=== PATIENT | male | born 1950 | race Caucasian/White ===

== ENCOUNTER → 2019-06-21 07:42 | Outpatient (BNVA) | payer MEDICARE, OTHER, SELFPAY | PROVIDERS: Family Provider Internal Medicine; PCP Internal Medicine; Visit Provider Nurse Practitioner | DX: F33.41 Major depressive disorder, recurrent, in partial remission (principal); F51.11 Primary hypersomnia; F41.1 Generalized anxiety disorder | CPT/HCPCS: 99213 ==

== ENCOUNTER → 2019-07-13 14:09 | Outpatient (BNVA) | payer MEDICARE, OTHER, SELFPAY | PROVIDERS: Family Provider Internal Medicine; PCP Internal Medicine; Visit Provider Urology | DX: R33.9 Retention of urine, unspecified (principal); R97.20 Elevated prostate specific antigen [PSA]; N52.9 Male erectile dysfunction, unspecified | CPT/HCPCS: 81001; 84153 ==

== ENCOUNTER → 2019-12-13 07:39 | Outpatient (BNVA) | payer MEDICARE, OTHER, SELFPAY | PROVIDERS: Family Provider Internal Medicine; PCP Internal Medicine; Visit Provider Nurse Practitioner | DX: F41.1 Generalized anxiety disorder (principal); F33.41 Major depressive disorder, recurrent, in partial remission; G47.00 Insomnia, unspecified; F43.12 Post-traumatic stress disorder, chronic | CPT/HCPCS: 99213 ==

== ENCOUNTER → 2020-01-12 08:46 | Outpatient (BNVA) | payer MEDICARE, OTHER, SELFPAY | PROVIDERS: Family Provider Internal Medicine; PCP Internal Medicine; Visit Provider Urology | DX: N52.9 Male erectile dysfunction, unspecified (principal); R97.20 Elevated prostate specific antigen [PSA] | CPT/HCPCS: 81001 ==

== ENCOUNTER → 2020-07-13 08:04 | Outpatient (BNVA) | payer MEDICARE, OTHER, SELFPAY | PROVIDERS: Family Provider Internal Medicine; PCP Internal Medicine; Visit Provider Nurse Practitioner | DX: F33.41 Major depressive disorder, recurrent, in partial remission (principal); F41.1 Generalized anxiety disorder; G47.00 Insomnia, unspecified | CPT/HCPCS: 99214 ==

== ENCOUNTER → 2020-09-18 07:41 | Outpatient (BNVA) | payer MEDICARE, OTHER, SELFPAY | PROVIDERS: Family Provider Internal Medicine; PCP Internal Medicine; Visit Provider Nurse Practitioner | DX: F33.41 Major depressive disorder, recurrent, in partial remission (principal); F41.1 Generalized anxiety disorder; G47.00 Insomnia, unspecified | CPT/HCPCS: 99214 ==

== ENCOUNTER → 2020-11-13 07:32 | Outpatient (BNVA) | payer MEDICARE, OTHER, SELFPAY | PROVIDERS: Family Provider Internal Medicine; PCP Internal Medicine; Visit Provider Nurse Practitioner | DX: F33.41 Major depressive disorder, recurrent, in partial remission (principal); F41.1 Generalized anxiety disorder; G47.00 Insomnia, unspecified | CPT/HCPCS: 99214 ==

== ENCOUNTER → 2021-01-14 08:56 | Outpatient (BNVA) | payer MEDICARE, OTHER, SELFPAY | PROVIDERS: Family Provider Internal Medicine; PCP Internal Medicine; Visit Provider Urology | DX: R33.9 Retention of urine, unspecified (principal); R97.20 Elevated prostate specific antigen [PSA]; N52.9 Male erectile dysfunction, unspecified; N40.1 Benign prostatic hyperplasia with lower urinary tract symptoms | CPT/HCPCS: 81003 ==

== ENCOUNTER → 2021-04-03 07:44 | Outpatient (BNVA) | payer MEDICARE, OTHER, SELFPAY | PROVIDERS: Family Provider Internal Medicine; PCP Internal Medicine; Visit Provider Nurse Practitioner | DX: F33.41 Major depressive disorder, recurrent, in partial remission (principal); F41.1 Generalized anxiety disorder; G47.00 Insomnia, unspecified | CPT/HCPCS: 99214 ==

== ENCOUNTER → 2021-07-18 13:42 | Outpatient (BNVA) | payer MEDICARE, OTHER, SELFPAY | PROVIDERS: Family Provider Internal Medicine; PCP Internal Medicine; Visit Provider Nurse Practitioner Family | DX: N40.1 Benign prostatic hyperplasia with lower urinary tract symptoms (principal); R33.9 Retention of urine, unspecified | CPT/HCPCS: 81003; 87086 ==

== ENCOUNTER → 2021-09-23 10:41 | Outpatient (BNVA) | payer MEDICARE, OTHER, SELFPAY | PROVIDERS: Family Provider Internal Medicine; PCP Internal Medicine; Visit Provider Podiatrist Foot & Ankle Surgery | DX: M19.071 Primary osteoarthritis, right ankle and foot (principal); M20.21 Hallux rigidus, right foot; M20.22 Hallux rigidus, left foot; M21.621 Bunionette of right foot; M21.622 Bunionette of left foot | CPT/HCPCS: 99204 ==

== ENCOUNTER → 2021-09-24 07:43 | Outpatient (BNVA) | payer MEDICARE, OTHER, SELFPAY | PROVIDERS: Family Provider Internal Medicine; PCP Internal Medicine; Visit Provider Nurse Practitioner | DX: F33.41 Major depressive disorder, recurrent, in partial remission (principal); F41.1 Generalized anxiety disorder; G47.00 Insomnia, unspecified; Z55.0 Illiteracy and low-level literacy | CPT/HCPCS: 99214 ==

== ENCOUNTER → 2021-12-11 08:49 | Outpatient (BNVA) | payer MEDICARE, OTHER, SELFPAY | PROVIDERS: Family Provider Internal Medicine; PCP Internal Medicine; Visit Provider Podiatrist Foot & Ankle Surgery | DX: M79.671 Pain in right foot (principal); M19.071 Primary osteoarthritis, right ankle and foot; M20.21 Hallux rigidus, right foot; M20.22 Hallux rigidus, left foot; M21.621 Bunionette of right foot; M21.622 Bunionette of left foot | CPT/HCPCS: 99213 ==

== ENCOUNTER 2022-01-01 16:21 | Outpatient (CLI) | payer MEDICARE, OTHER, SELFPAY | END 2022-01-01 16:22 | disposition home or self-care (01) | LOC: SPT 16:23 | PROVIDERS: Family Provider Internal Medicine; PCP Internal Medicine; Visit Provider Podiatrist Foot & Ankle Surgery | DX: Z46.89 Encounter for fitting and adjustment of other specified devices (principal); M19.079 Primary osteoarthritis, unspecified ankle and foot | CPT/HCPCS: 97760; L3030 ==

== ENCOUNTER 2022-01-14 07:51 | Outpatient (CLI) | payer MEDICARE, OTHER, SELFPAY | END 2022-01-14 07:52 | disposition home or self-care (01) | LOC: LAB 07:54 | PROVIDERS: PCP Internal Medicine; Visit Provider Urology | DX: R97.20 Elevated prostate specific antigen [PSA] (principal); N40.1 Benign prostatic hyperplasia with lower urinary tract symptoms; R33.9 Retention of urine, unspecified; N41.9 Inflammatory disease of prostate, unspecified; N52.9 Male erectile dysfunction, unspecified | CPT/HCPCS: 36415; 51798; 81003; 84153; 99213 ==

== ENCOUNTER → 2022-02-12 09:33 | Outpatient (BNVA) | payer MEDICARE, OTHER, SELFPAY | PROVIDERS: PCP Internal Medicine; Visit Provider Podiatrist Foot & Ankle Surgery | DX: M19.071 Primary osteoarthritis, right ankle and foot (principal); M19.072 Primary osteoarthritis, left ankle and foot; M20.21 Hallux rigidus, right foot; M20.22 Hallux rigidus, left foot; M21.621 Bunionette of right foot; M21.622 Bunionette of left foot | CPT/HCPCS: 99214 ==

== ENCOUNTER → 2022-05-22 07:58 | Outpatient (BNVA) | payer MEDICARE, OTHER, SELFPAY | PROVIDERS: PCP Internal Medicine; Referring Provider Internal Medicine; Visit Provider Student in an Organized Health Care Education/Training Program | DX: S29.011A Strain of muscle and tendon of front wall of thorax, initial encounter (principal); X58.XXXA Exposure to other specified factors, initial encounter; G25.89 Other specified extrapyramidal and movement disorders | CPT/HCPCS: 73030; 99203 ==

== ENCOUNTER 2022-06-03 06:00 | Outpatient (RCR) | payer MEDICARE, OTHER, SELFPAY | END 2022-06-17 23:59 | disposition home or self-care (01) | LOC: SPT 06:00 | PROVIDERS: PCP Internal Medicine; Visit Provider Student in an Organized Health Care Education/Training Program | DX: S46.911D Strain of unspecified muscle, fascia and tendon at shoulder and upper arm level, right arm, subsequent encounter (principal); X58.XXXD Exposure to other specified factors, subsequent encounter | CPT/HCPCS: 97110; 97162 ==

== ENCOUNTER 2022-06-18 06:00 | Outpatient (RCR) | payer MEDICARE, OTHER, SELFPAY | END 2022-07-15 23:59 | disposition home or self-care (01) | LOC: SPT 06:00 | PROVIDERS: PCP Internal Medicine; Visit Provider Student in an Organized Health Care Education/Training Program | DX: M25.511 Pain in right shoulder (principal) | CPT/HCPCS: 97110 ==

== ENCOUNTER 2022-07-16 06:00 | Outpatient (RCR) | payer MEDICARE, OTHER, SELFPAY | END 2022-08-15 23:59 | disposition home or self-care (01) | LOC: SPT 06:00 | PROVIDERS: PCP Internal Medicine; Visit Provider Student in an Organized Health Care Education/Training Program | DX: M25.511 Pain in right shoulder (principal) | CPT/HCPCS: 97110 ==

== ENCOUNTER → 2022-07-17 08:06 | Outpatient (BNVA) | payer MEDICARE, OTHER, SELFPAY | PROVIDERS: PCP Internal Medicine; Visit Provider Student in an Organized Health Care Education/Training Program | DX: S29.011A Strain of muscle and tendon of front wall of thorax, initial encounter (principal); G25.89 Other specified extrapyramidal and movement disorders; X50.9XXA Other and unspecified overexertion or strenuous movements or postures, initial encounter | CPT/HCPCS: 99213 ==

== ENCOUNTER 2022-08-16 06:00 | Outpatient (RCR) | payer MEDICARE, OTHER, SELFPAY | END 2022-09-14 23:59 | disposition home or self-care (01) | LOC: SPT 06:00 | PROVIDERS: PCP Internal Medicine; Visit Provider Student in an Organized Health Care Education/Training Program | DX: M25.511 Pain in right shoulder (principal) | CPT/HCPCS: 97110 ==

== ENCOUNTER → 2022-10-23 08:25 | Outpatient (BNVA) | payer MEDICARE, OTHER, SELFPAY | PROVIDERS: PCP Internal Medicine; Visit Provider Orthopaedic Surgery | DX: M54.2 Cervicalgia (principal) | CPT/HCPCS: 72050; 99203 ==

== ENCOUNTER 2022-11-06 14:35 | Outpatient (RCR) | payer MEDICARE, OTHER, SELFPAY | END 2022-11-14 23:59 | disposition home or self-care (01) | LOC: SPT 14:35 | PROVIDERS: Visit Provider Orthopaedic Surgery | DX: M54.2 Cervicalgia (principal) | CPT/HCPCS: 97110; 97161 ==

== ENCOUNTER 2022-11-15 06:00 | Outpatient (RCR) | payer MEDICARE, OTHER, SELFPAY | END 2022-11-28 23:59 | disposition home or self-care (01) | LOC: SPT 06:00 | PROVIDERS: Visit Provider Orthopaedic Surgery | DX: M54.2 Cervicalgia (principal) | CPT/HCPCS: 97110 ==

== ENCOUNTER → 2022-12-02 08:39 | Outpatient (BNVA) | payer MEDICARE, OTHER, SELFPAY | PROVIDERS: Visit Provider Orthopaedic Surgery | DX: M54.2 Cervicalgia (principal) | CPT/HCPCS: 99213 ==

== ENCOUNTER → 2023-01-26 07:53 | Outpatient (BNVA) | payer MEDICARE, OTHER, SELFPAY | PROVIDERS: Visit Provider Podiatrist Foot & Ankle Surgery | DX: M20.21 Hallux rigidus, right foot; M20.22 Hallux rigidus, left foot; M21.621 Bunionette of right foot; M21.622 Bunionette of left foot; M19.071 Primary osteoarthritis, right ankle and foot | CPT/HCPCS: 99213 ==

== ENCOUNTER → 2023-03-24 08:46 | Outpatient (BNVA) | payer MEDICARE, OTHER, SELFPAY | PROVIDERS: Visit Provider Orthopaedic Surgery | DX: M47.22 Other spondylosis with radiculopathy, cervical region | CPT/HCPCS: 72050; 99214 ==

== ENCOUNTER 2023-04-17 13:39 | Outpatient (CLI) | payer MEDICARE, OTHER, SELFPAY ==
--- NOTE | 2023-04-17 16:45 | MR_ITS ---
WS: [id number] MRI CERVICAL SPINE NONCONTRAST HISTORY: Cervical Pain COMPARISON: 10/01/2010 Technique: Multiplanar, multisequence noncontrast imaging of the cervical spine. Straightening of the normal cervical lordosis. No acute fracture. Signal within the cord is normal. Disc spaces are narrowed throughout the cervical spine, most signif icant at C5-6 and C6-7. Uncovertebral osteophytes and disc encroachment upon the ventral cord most si gnificant at C5-6 and C6-7 and C7-T1. Craniocervical junction, C1 and C2 relationship, odontoid process and soft tissues are normal. C2-C3: Normal. C3-C4: Shallow central disc protrusion with mild annular disc bulging and osteophytic ridging. Mild c entral and bilateral foraminal stenosis. Bilateral facet arthritis, LEFT greater than RIGHT. C4-C5: Diffuse mild annular disc bulging and osteophytic ridging. Tiny central disc protrusion. Mild central and bilateral foraminal stenosis and facet arthritis. C5-C6: Diffuse marked annular disc bulging and osteophytic ridging. Disc and osteophyte encroachment upon the ventral thecal sac and foramina. Moderate central with moderate to severe bilateral foramina l stenosis and facet arthritis. C6-C7: Marked annular disc bulging with a central disc protrusion. Disc osteophyte complexes extend i nto the neural foramina. Moderate to severe central and bilateral foraminal stenosis. C7-T1: Diffuse annular disc bulging. Osteophytic ridging. Mild central and bilateral foraminal stenos is. Paraspinal soft tissue are normal. IMPRESSION: 1. Moderate progression of degenerative disc disease and stenoses since 2010. Significant osteophytic encroachment upon the central canal and foramina at C5-6 and C6-7. 2. C5-6: Moderate to severe bilateral foraminal stenosis with moderate central stenosis and facet art hritis. 3. C6-7: Moderate to severe central and bilateral foraminal stenosis. 4. C3-4 and C4-5: Mild central and bilateral foraminal stenosis and facet arthritis.
== END 2023-04-17 13:40 | disposition home or self-care (01) ==
LOC: RAD 13:40
PROVIDERS: Visit Provider Orthopaedic Surgery
DX: M48.02 Spinal stenosis, cervical region (principal); M25.78 Osteophyte, vertebrae; M50.33 Other cervical disc degeneration, cervicothoracic region
CPT/HCPCS: 72141

== ENCOUNTER → 2023-05-07 10:26 | Outpatient (BNVA) | payer MEDICARE, OTHER, SELFPAY | PROVIDERS: PCP Internal Medicine; Referring Provider Orthopaedic Surgery; Visit Provider Anesthesiology Pain Medicine | DX: Z79.891 Long term (current) use of opiate analgesic (principal); M47.22 Other spondylosis with radiculopathy, cervical region; M48.02 Spinal stenosis, cervical region | CPT/HCPCS: 99204 ==

== ENCOUNTER 2023-05-20 08:52 | Emergency (ER) | payer MEDICARE, OTHER, SELFPAY ==
[2023-05-20 09:41] VITALS: BP 170/96; PULSE 87; RESP 18; TEMP 36.8; O2SAT 98; BMI 33.7
--- NOTE | 2023-05-20 11:29 | XRR_ITS ---
PROCEDURE INFORMATION: Exam: XR Left Femur Exam date and time: 05/20/2023 11:59 AM Age: 72 years old Clinical indication: Injury or trauma; Fall; Blunt trauma; Thigh or upper leg; Left; Additional info: Fall, leg pain TECHNIQUE: Imaging protocol: Radiologic exam of the left femur. Views: 2 views. COMPARISON: CR XR hip LT 2-3V wo/w pel* [id number] 05/20/2023 11:55 AM FINDINGS: Bones/joints: [id number] degenerative change of the left hip joint. No fracture or dislocation. Mild degenerative change of the visualized left knee. Left knee radiograph report for other findings. Soft tissues: Vascular calcification of the soft tissues. XR/XR femur LT min 2V* [id number] IMPRESSION: No acute bony pathology.
--- NOTE | 2023-05-20 11:29 | XRR_ITS ---
PROCEDURE INFORMATION: Exam: XR Left Hip Exam date and time: 05/20/2023 11:55 AM Age: 72 years old Clinical indication: Injury or trauma; Fall; Blunt trauma (contusions or hematomas); Left; Hip; Additional info: Fall, left hip pain. With pelvis TECHNIQUE: Imaging protocol: Radiologic exam of the left hip. Views: 2 or 3 views hip with pelvis when performed. COMPARISON: CT abdomen wo/w con [id number] 04/13/2017 9:39 AM FINDINGS: Bones/joints: No fracture or dislocation. Mild moderate degenerative change of the bilateral hips. Mild degenerative change of the bilateral sacroiliac joints. Soft tissues: Vascular calcifications in the soft tissues. XR/XR hip LT 2-3V wo/w pel* [id number] IMPRESSION: No acute bony pathology.
--- NOTE | 2023-05-20 11:29 | XRR_ITS ---
PROCEDURE INFORMATION: Exam: XR Left Knee Exam date and time: 05/20/2023 12:03 PM Age: 72 years old Clinical indication: Injury or trauma; Fall; Blunt trauma; Knee; Left; Additional info: Fall, knee pain TECHNIQUE: Imaging protocol: Radiologic exam of the left knee. Views: 3 views. COMPARISON: CR XR femur LT min 2V* [id number] 05/20/2023 11:59 AM FINDINGS: Bones/joints: Diffuse prepatellar and suprapatellar soft tissue swelling. Plantar enthesophytes and medial femoral condyle enthesophyte are noted. Small articular osteophytes. Mild medial tibiofemoral joint space narrowing. No fracture or dislocation. Soft tissues: See Bones/joints finding. XR/XR knee LT 3V* [id number] IMPRESSION: Diffuse suprapatellar and prepatellar soft tissue swelling. No acute traumatic bony pathology.
--- NOTE | 2023-05-20 13:21 | ED_ITS ---
HPI - Extremity Problem General: Chief complaint: Extremity Injury, Lower Stated complaint: Fell, left leg pain Time Seen by Provider: 05/20/23 13:20 History of Present Illness: 72-year-old male patient was out with th e cattle this morning when he was struck by a cow which knocked him down causing him to injure his knee. Patient reports swelling and tenderness to the right knee. Patient also reports straining to the lateral distal aspect of the upper leg. Patient has significant swelling of the knee noted. Bruising is noted. Distal pulses and sensation are intact. Patient appears nontoxic. Patient has used a cane to assist with movement. Patient does have a wheelchair at home. Patient does not have a walker. Review of Systems General: Reports: 10 or more systems reviewed and unremarkable except in HPI and below Musc: Reports: joint pain and joint swelling PFSH ED PFSH: Medical History Scapular dyskinesis Pectoralis muscle strain Low-level of literacy Psychiatric care Prostatitis Lower urinary tract symptoms (LUTS) Insomnia Incomplete bladder emptying Insomnia Male erectile dysfunction Elevated PSA Generalized anxiety disorder Primary hypersomnia Major depressive disorder, recurrent, in partial remission Surgical History H/O transurethral resection of prostate Family History Father , 86 Cancer lung Mother , 84 No problems noted. Sister Diabetes Social History Smoking and tobacco/nicotine status: never used tobacco/nicotine Alcohol intake: never Substance/Drug Use: never Marital status: / Current occupational status: employed Physical Exam Const: COMMON NORMALS: alert HENMT: COMMON NORMALS: normocephalic HEAD & SCALP: normocephalic Neck/C-Spine: COMMON NORMALS: full ROM Resp: COMMON NORMALS: normal respiratory effort and clear to auscultation bilaterally AUSCULTATION: clear to auscultation bilaterally Cardio: COMMON NORMALS: regular rate RATE: regular rate Back/Pelvis: COMMON NORMALS: thoracic and lumbar spine normal to inspection Extremity: LEFT LOWER EXTREMITY: Yes knee joint (Significant swelling anterior knee with some ecchymosis) Left knee: Yes inspection, Yes palpation and Yes ROM (Decreased due to swelling) Neuro: SENSORIUM/ORIENTATION: Yes alert Skin: COMMON NORMALS: turgor normal GENERAL SKIN EXAM: turgor normal Course Vital Signs: Vital signs: Vital Signs Temperature 98.2 F 05/20/23 09:41 Pulse Rate 87 05/20/23 09:41 Respiratory Rate 18 05/20/23 09:41 Blood Pressure 170/96 05/20/23 09:41 Pulse Oximetry 98 05/20/23 09:41 Oxygen Delivery Me thod Room Air 05/20/23 09:41 MDM - Extremity (Nontraumatic) Medical Decision Making 72-year-old male patient comes in today with injury to the left knee. On exam patient has significant swelling and bruising to the anterior aspect of the knee. Distal pulses and sensation are intact. Differential diagnosis includes but not limited to fracture, sprain, contusion, joint effusion. X-rays noted no acute fractures. Reviewed exam with patient recommended ice and rest to help with swelling. Recommend follow-up with primary care as needed. Referred patient to orthopedics office for further evaluation and treatment. Patient re ports understanding of care plan and need for follow-up or return to the ER. Lab Data Radiology Impressions Femur X-Ray 05/20/23 11:29 IMPRESSION: No acute bony pathology. Hip/Pelvis X-Ray 05/20/23 11:29 IMPRESSION: No acute bony pathology. Knee X-Ray 05/20/23 11:29 IMPRESSION: Diffuse suprapatellar and prepatellar soft tissue swelling. No acute traumatic bony pathology. All radiology interpretation(s) finalized by discharge Discharge Plan Discharge Patient Disposition: Home Clinical Impression: Acute internal derangement of knee Qualifiers: Laterality: left Qualified Code(s): M23.92 - Unspecified internal derangement of left knee Condition: Stable Prescriptions: No Action aspirin [Adult Low Dose Aspirin] 81 mg tablet,delayed release (DR/EC) 81 mg PO DAILY omega-3 fatty acids [Fish Oil Concentrate] 1,000 mg capsule 1,000 mg PO DAILY amlodipine 10 mg tablet 10 mg PO DAILY tamsulosin 0.4 mg capsule 0.4 mg PO DAILY meloxicam 7.5 mg tablet 15 mg PO DAILY cetirizine [Zyrtec] 10 mg tablet 10 mg PO DAILY PRN cholecalciferol (vitamin D3) 25 mcg (1,000 unit) capsule 25 mcg PO DAILY azelastine-fluticasone 137-50 mcg/spray spray,non-aerosol 1 spray intranasal BID Rx Instructions: administer into each nostril diclofenac sodium [Voltaren Arthritis Pain] 1 % gel 2 g topical BID Qty: 100 0RF (DME) Custom Molded Orthotics See Rx Instructions .Route .MEDSUPPLY Qty: 1 0RF Rx Instructions: As directed bupropion HCl [Wellbutrin XL] 300 mg tablet extended release 24 hr 300 mg PO QAM Qty: 30 5RF clonazepam [Klonopin] 0.5 mg tablet 0.5 mg PO .at bed Qty: 30 5RF trazodone 50 mg tablet 50 mg PO .at bed PRN (Reason: sleep) Qty: 60 5RF Rx Instructions: 1-2 tabs at bedtime as needed for sleep risperidone [Risperdal] 0.5 mg tablet 0.5 mg PO .at bed Qty: 30 5RF (DME) sole support See Rx Instructions .Route .MEDSUPPLY Qty: 1 0RF Rx Instructions: As directed lisinopril 40 mg tablet 40 mg PO DAILY gabapentin 300 mg capsule 300 mg PO TID Qty: 90 3RF Discharge Orders: Discharge ED (Routine); Ordered 05/20/23 Ordered By: Freeman Cronin Other Ambulatory Orders: DME: [facility] (Order) Location: None Selected Ordered By: Freeman Cronin Referrals: Dann Tipton DO [Primary Care Provider] - Discharge Diet: Usual diet Discharge Activity: Increase activity as tolerated Patient Instructions: Knee Sprain (ED), Pain Management Activity Restrictions/Additional Instructions: Home and rest. Elevate knee is much as possible. Ice and heat alternating for pain and discomfort and swelling. Activity as tolerated. Follow-up with orthopedic surgeon for further evaluation. Return to ED for new concerns. Coding Level of Care Code ED Supervisor [employer] for Glenn Gong
--- NOTE | 2023-05-25 08:04 | DCPLANNER ---
Message was sent to ortho on 05/25/23 at 0804 am. Clinic to contact patient
== END 2023-05-20 13:40 | disposition home or self-care (01) ==
PROVIDERS: Emergency Provider Nurse Practitioner Family; PCP Internal Medicine
DX: M23.92 Unspecified internal derangement of left knee (principal); Z79.82 Long term (current) use of aspirin
CPT/HCPCS: 73502; 73552; 73562; 99284

== ENCOUNTER → 2023-08-05 10:42 | Outpatient (BNVA) | payer MEDICARE, OTHER, SELFPAY | PROVIDERS: PCP Internal Medicine; Visit Provider Anesthesiology Pain Medicine | DX: M47.22 Other spondylosis with radiculopathy, cervical region | CPT/HCPCS: 99214 ==

== ENCOUNTER 2024-03-16 17:34 | Emergency (ER) | payer MEDICARE, OTHER, SELFPAY ==
[2024-03-16] VITALS (22 sets, daily range): BP systolic 148–185; BP diastolic 94–108; PULSE 79–108; RESP 16–30; TEMP 36.8; O2SAT 91–99; BMI 34.7
--- NOTE | 2024-03-16 17:49 | ED_ITS ---
Documented by User: Jonathon Rangel DO 03/16/24 17:50 HPI - SOB/Dyspnea 2 General: Chief Complaint: Shortness of Breath/Dyspnea Stated Complaint: throat swelling hard to breathe Time Seen by Provider: 03/16/24 17:42 History of Present Illness: HPI Narrative: Patient presents to the ER with complaints of feeling his throat is closing up and his ears have pressure behind them. Says he seen his PCP several times for symptoms and been placed on several different medicines with no relief. Patient states his ribs are hurting because he is coughing so much but coughing does help with a little bit. Patient denies any fever or chills and has never been like this before. Patient is still easily swallowing his own secretions and maintaining his own airway, patient's no acute distress and does not appear toxic. Related Data Home Medications Medication Instructions Recorded Confirmed meloxicam 7.5 mg tablet 15 mg PO DAILY 06/21/19 02/22/24 aspirin 81 mg tablet,delayed 81 mg PO DAILY 07/13/19 02/22/24 release (Adult Low Dose Aspirin) omega-3 fatty acids 1,000 mg 1,000 mg PO DAILY 07/13/19 02/22/24 capsule (Fish Oil Concentrate) azelastine 137 mcg-fluticasone 50 1 spray intranasal BID 01/14/21 02/22/24 mcg/spray nasal spray cetirizine 10 mg tablet (Zyrtec) 10 mg PO DAILY PRN 01/14/21 02/22/24 cholecalciferol (vitamin D3) 25 25 mcg PO DAILY 01/14/21 02/22/24 mcg (1,000 unit) capsule lisinopril 40 mg tablet 40 mg PO DAILY 12/02/22 02/22/24 furosemide 20 mg tablet 20 mg PO DAILY 02/22/24 02/22/24 Previous Rx's Medication Instructions Recorded Custom Molded Orthotics #1 ea 09/23/21 diclofenac sodium 1 % topical gel 2 g topical BID #100 grams 09/23/21 (Voltaren Arthritis Pain) sole support #1 ea 12/11/21 gabapentin 300 mg capsule 300 mg PO TID pain #90 caps 11/05/23 bupropion HCl 300 mg 24 hr tablet, 300 mg PO QAM #90 tabs 02/22/24 extended release (Wellbutrin XL) clonazepam 0.5 mg tablet (Klonopin) 0.5 mg PO .at bed #90 tabs 02/22/24 risperidone 0.5 mg tablet 0.5 mg PO .at bed #90 tabs 02/22/24 (Risperdal) trazodone 50 mg tablet 50 mg PO .at bed PRN sleep #180 02/22/24 tabs dexamethasone 6 mg tablet 6 mg PO DAILY 5 days #5 tabs 03/16/24 Allergies Allergy/AdvReac Type Severity Reaction Status Date / Time No Known Allergies Allergy Verified 02/22/24 11:03 Review of Systems 2 General: Reports: 10 or more systems reviewed and unremarkable except in HPI and below PFSH ED 2 PFSH: Medical History Scapular dyskinesis Pectoralis muscle strain Low-level of literacy Psychiatric care Prostatitis Lower urinary tract symptoms (LUTS) Insomnia Incomplete bladder emptying Insomnia Male erectile dysfunction Elevated PSA Generalized anxiety disorder Primary hypersomnia Major depressive disorder, recurrent, in partial remission Surgical History H/O transurethral resection of prostate Family History Father , 86 Cancer lung Mother , 84 No problems noted. Sister Diabetes Social History Smoking and tobacco/nicotine status: never used tobacco/nicotine Alcohol intake: never Substance/Drug Use: never Marital status: / Current occupational status: employed Physical Exam 2 Const: COMMON NORMALS: no acute distress, average body habitus, patient oriented x3, no limitations, healthy appearing, alert and well nourished HENMT: COMMON NORMALS: normocephalic, atraumatic, hearing grossly normal bilaterally, external ears normal, EAC's normal, TM's normal bilaterally, Normal external nose present, Normal nasal mucous membranes and turbinates present, moist oral mucous membranes and oropharynx normal HEAD & SCALP: normocephalic and atraumatic NOSE: Normal external nose present and Normal nasal mucous membranes and turbinates present EXTERNAL EAR: Yes external ears normal E XTERNAL AUDITORY CANAL: EAC's normal TYMPANIC MEMBRANE: TM's normal bilaterally Eye: COMMON NORMALS: Equal, round and reactive pupils present, EOMs intact bilaterally, conjunctivae normal and no scleral icterus CONJUNCTIVA: Yes conjunctivae normal PUPIL: Yes Equal, round and reactive pupils present Neck/C-Spine: COMMON NORMALS: full ROM, supple, no meningeal signs, no JVD and Thyroid normal; negative for no lymphadenopathy (Mild right cervical anterior lymphadenopathy) THYROID: Thyroid normal Chest: COMMONS NORMALS: normal inspection of the chest and normal palpation of entire chest wall Resp: COMMON NORMALS: normal respiratory effort, No retractions, No use of accessory muscles and clear to auscultation bilaterally AUSCULTATION: clear to auscultation bilaterally Cardio: COMMON NORMALS: no JVD, regular rate, regular rhythm, S1 normal heart sound present, S2 normal heart sound present, No gallops present (Cardio), No clicks present (Cardio), No murmurs present (Cardio) and No rub (Cardio) R ATE: regular rate RHYTHM: regular rhythm HEART SOUNDS: S1 normal heart sound present and S2 normal heart sound present GI: COMMON NORMALS: Normal to inspection, nondistended, normoactive bowel sounds present, Soft to palpation, non-tender, No hepatosplenomegaly present, no masses and no bruits PALPATION: Yes Soft to palpation and Yes No hepatosplenomegaly present Neuro: COMMON NORMALS: patient oriented x3 SENSORIUM/ORIENTATION: Yes alert MENINGEAL SIGNS: Yes no meningeal signs Course 2 Vital Signs: Vital signs: Vital Signs Temperature 98.2 F 03/16/24 17:42 Pulse Rate 98 03/16/24 22:35 Respiratory Rate 20 H 03/16/24 22:35 Blood Pressure 172/107 03/16/24 22:35 Pulse Oximetry 95 03/16/24 22:35 Oxygen Delivery Me thod Room Air 03/16/24 22:35 MDM - SOB/Dyspnea Medical Records I reviewed the patient's medical records. Lab Data I reviewed the patient's lab results. 03/16/24 17:50 03/16/24 20:25 Labs/Radiology: Radiology Impressions Chest X-Ray 03/16/24 17:51 IMPRESSION: No acute cardiopulmonary abnormality. Soft Tissue Neck X-Ray 03/16/24 17:51 IMPRESSION: No acute findings. Neck CT 03/16/24 19:00 IMPRESSION: No acute findings. Laboratory Results WBC 10.51 10^3/uL (3.29-11.43) 03/16/24 17:50 RBC 5.95 10^6/uL (3.85-5.65) H 03/16/24 17:50 Hgb 17.50 g/dL (11.27-16.99) H 03/16/24 17:50 Hct 49.7 % (37-53) 03/16/24 17:50 MCV 83.5 fl (82-101) 03/16/24 17:50 MCH 29.4 pg (27-33) 03/16/24 17:50 MCHC 35.2 g/dL (30-55) 03/16/24 17:50 RDW 13.3 % (12.1-15.1) 03/16/24 17:50 Plt Count 248 10^3/cmm (157-399) 03/16/24 17:50 MPV 9.1 fL (7.4-10.4) 03/16/24 17:50 Neut % (Auto) 70.3 % 03/16/24 17:50 Lymph % (Auto) 18.3 % 03/16/24 17:50 Gove % (Auto) 7.6 % 03/16/24 17:50 Eos % (Auto) 1.6 % 03/16/24 17:50 Baso % (Auto) 0.8 % 03/16/24 17:50 Neut # (Auto) 7.39 10^3/uL (1.8-7.7) 03/16/24 17:50 Lymph # (Auto) 1.9 10^3/uL (0.8-4.8) 03/16/24 17:50 Gove # (Auto) 0.8 10^3/uL (0.2-0.9) 03/16/24 17:50 Eos # (Auto) 0.2 10^3/uL (0.0-0.8) 03/16/24 17:50 Baso # (Auto) 0.1 10^3/uL (0.0-0.1) 03/16/24 17:50 Nucleated RBC % (auto) 0 % 03/16/24 17:50 Nucleated RBCs # 0.0 /100WBC 03/16/24 17:50 Sodium 127 mmol/L (136-145) L 03/16/24 20:25 Potassium 3.8 mmol/L (3.5-5.1) 03/16/24 20:25 Chloride 90 mmol/L (98-107) L 03/16/24 20:25 Carbon Dioxide 28 mmol/L (22-29) 03/16/24 20:25 Anion Gap 12.8 (5-19) 03/16/24 20:25 BUN 17 mg/dL (8-23) 03/16/24 20:25 Creatinine 1.1 mg/dL (0.7-1.2) 03/16/24 20:25 GFR Calculation Not Reportable 03/16/24 20:25 Glucose 99 mg/dL (65-115) 03/16/24 20:25 Calculated Osmolality 266 mOsm/kg (285-295) L 03/16/24 20:25 Calcium 9.0 mg/dL (8.5-10.5) 03/16/24 20:25 Total Bilirubin 0.9 mg/dL (0.15-1.2) 03/16/24 20:25 AST 24 U/L (0-40) 03/16/24 20:25 ALT 35 U/L (0-41) 03/16/24 20:25 Alkaline Phosphatase 54 U/L (40-130) 03/16/24 20:25 C-Reactive Protein 3.0 mg/L (0.0-4.9) 03/16/24 17:50 Total Protein 6.2 g/dL (6.6-8.7) L 03/16/24 20:25 Albumin 4.1 g/dL (3.5-5.2) 03/16/24 20:25 Globulin 2.1 g/dL (1.3-4.6) 03/16/24 20:25 Coronavirus (PCR) Negative (Negative) 03/16/24 18:01 Influenza A (PCR) Negative (Negative) 03/16/24 18:01 Influenza Type B (PCR) Negative (Negative) 03/16/24 18:01 RSV (PCR) Negative (Negative) 03/16/24 18:01 Group A Strep Rapid Negative (Negative) 03/16/24 18:01 All radiology interpretation(s) finalized by discharge Discharge Plan Discharge Patient Disposition: Home Clinical Impression: SOB (shortness of breath) Condition: Stable Prescriptions: New dexamethasone 6 mg tablet 6 mg PO DAILY 5 Days Qty: 5 0RF No Action aspirin [Adult Low Dose Aspirin] 81 mg tablet,delayed release (DR/EC) 81 mg PO DAILY omega-3 fatty acids [Fish Oil Concentrate] 1,000 mg capsule 1,000 mg PO DAILY meloxicam 7.5 mg tablet 15 mg PO DAILY cetirizine [Zyrtec] 10 mg tablet 10 mg PO DAILY PRN cholecalciferol (vitamin D3) 25 mcg (1,000 unit) capsule 25 mcg PO DAILY azelastine-fluticasone 137-50 mcg/spray spray,non-aerosol 1 spray intranasal BID Rx Instructions: administer into each nostril diclofenac sodium [Voltaren Arthritis Pain] 1 % gel 2 g topical BID Qty: 100 0RF (DME) Custom Molded Orthotics See Rx Instructions .Route .MEDSUPPLY Qty: 1 0RF Rx Instructions: As directed furosemide 20 mg tablet 20 mg PO DAILY bupropion HCl [Wellbutrin XL] 300 mg tablet extended release 24 hr 300 mg PO QAM Qty: 90 1RF clonazepam [Klonopin] 0.5 mg tablet 0.5 mg PO .at bed Qty: 90 1RF risperidone [Risperdal] 0.5 mg tablet 0.5 mg PO .at bed Qty: 90 1RF trazodone 50 mg tablet 50 mg PO .at bed PRN (Reason: sleep) Qty: 180 1RF Rx Instructions: 1-2 tabs at bedtime as needed for sleep (DME) sole support See Rx Instructions .Route .MEDSUPPLY Qty: 1 0RF Rx Instructions: As directed lisinopril 40 mg tablet 40 mg PO DAILY gabapentin 300 mg capsule 300 mg PO TID Qty: 90 3RF Discharge Orders: Discharge ED (Routine); Ordered 03/16/24 Ordered By: Madison Browning Referrals: Dann Tipton, [Primary Care Provider] - Discharge Diet: Usual diet Discharge Activity: Increase activity as tolerated Patient Instructions: Shortness of Breath (ED), Opioid Safety, Pain Management Activity Restrictions/Additional Instructions: Thank you for choosing [facility] for your healthcare needs today. Please realize this is an emergency room and that we are providing you with a medical screening exam and this may not be complete and all inclusive of all the testing and or work up that you may need to determine your ailment or severity of your illness. You have been screened and evaluated and felt safe for discharge. Health conditions do change or evolve sometimes and as such it is important that you follow up with your Primary Doctor to be re checked, 3-5 days is a general good time frame for follow up. You are always welcome to return to the ED for re assessment if your symptoms are worsening or you have new concerns Coding Level of Care Code ED Residential Aide for Chg Fwd Documented by User: Madison Browning MD 03/16/24 22:41 HPI - SOB/Dyspnea 2 General: Chief Complaint: Shortness of Breath/Dyspnea Stated Complaint: throat swelling hard to breathe Time Seen by Provider: 03/16/24 17:42 Related Data Home Medications Medication Instructions Recorded Confirmed meloxicam 7.5 mg tablet 15 mg PO DAILY 06/21/19 02/22/24 aspirin 81 mg tablet,delayed 81 mg PO DAILY 07/13/19 02/22/24 release (Adult Low Dose Aspirin) omega-3 fatty acids 1,000 mg 1,000 mg PO DAILY 07/13/19 02/22/24 capsule (Fish Oil Concentrate) azelastine 137 mcg-fluticasone 50 1 spray intranasal BID 01/14/21 02/22/24 mcg/spray nasal spray cetirizine 10 mg tablet (Zyrtec) 10 mg PO DAILY PRN 01/14/21 02/22/24 cholecalciferol (vitamin D3) 25 25 mcg PO DAILY 01/14/21 02/22/24 mcg (1,000 unit) capsule lisinopril 40 mg tablet 40 mg PO DAILY 12/02/22 02/22/24 furosemide 20 mg tablet 20 mg PO DAILY 02/22/24 02/22/24 Previous Rx's Medication Instructions Recorded Custom Molded Orthotics #1 ea 09/23/21 diclofenac sodium 1 % topical gel 2 g topical BID #100 grams 09/23/21 (Voltaren Arthritis Pain) sole support #1 ea 12/11/21 gabapentin 300 mg capsule 300 mg PO TID pain #90 caps 11/05/23 bupropion HCl 300 mg 24 hr tablet, 300 mg PO QAM #90 tabs 02/22/24 extended release (Wellbutrin XL) clonazepam 0.5 mg tablet (Klonopin) 0.5 mg PO .at bed #90 tabs 02/22/24 risperidone 0.5 mg tablet 0.5 mg PO .at bed #90 tabs 02/22/24 (Risperdal) trazodone 50 mg tablet 50 mg PO .at bed PRN sleep #180 02/22/24 tabs dexamethasone 6 mg tablet 6 mg PO DAILY 5 days #5 tabs 03/16/24 Allergies Allergy/AdvReac Type Severity Reaction Status Date / Time No Known Allergies Allergy Verified 02/22/24 11:03 PFSH ED 2 PFSH: Medical History Scapular dyskinesis Pectoralis muscle strain Low-level of literacy Psychiatric care Prostatitis Lower urinary tract symptoms (LUTS) Insomnia Incomplete bladder emptying Insomnia Male erectile dysfunction Elevated PSA Generalized anxiety disorder Primary hypersomnia Major depressive disorder, recurrent, in partial remission Surgical History H/O transurethral resection of prostate Family History Father , 86 Cancer lung Mother , 84 No problems noted. Sister Diabetes Social History Smoking and tobacco/nicotine status: never used tobacco/nicotine Alcohol intake: never Substance/Drug Use: never Marital status: / Current occupational status: employed Course 2 Vital Signs: Vital signs: Vital Signs Temperature 98.2 F 03/16/24 17:42 Pulse Rate 98 03/16/24 22:35 Respiratory Rate 20 H 03/16/24 22:35 Blood Pressure 172/107 03/16/24 22:35 Pulse Oximetry 95 03/16/24 22:35 Oxygen Delivery Me thod Room Air 03/16/24 22:35 MDM - SOB/Dyspnea Medical Decision Making Patient care transitioned me at shift change awaiting CT results of the neck. CT of the neck and soft tissue shows no acute process. This was reviewed and interpreted by myself the emergency room physician. I also reviewed the radiology report. Reexamination: Patient has had normal vitals other than slightly hypertensive. When I go to discharge him he says he will not go home because he will . He does seem somewhat anxious some giving him some Ativan Assessment and plan: Neck pain - Discharged home - Discussed plan with patient. Answered any questions. - Evaluation and treatment of this problem were appropriate in the emergency setting. Lab Data 03/16/24 17:50 03/16/24 20:25 Labs/Radiology: Radiology Impressions Chest X-Ray 03/16/24 17:51 IMPRESSION: No acute cardiopulmonary abnormality. Soft Tissue Neck X-Ray 03/16/24 17:51 IMPRESSION: No acute findings. Neck CT 03/16/24 19:00 IMPRESSION: No acute findings. Laboratory Results WBC 10.51 10^3/uL (3.29-11.43) 03/16/24 17:50 RBC 5.95 10^6/uL (3.85-5.65) H 03/16/24 17:50 Hgb 17.50 g/dL (11.27-16.99) H 03/16/24 17:50 Hct 49.7 % (37-53) 03/16/24 17:50 MCV 83.5 fl (82-101) 03/16/24 17:50 MCH 29.4 pg (27-33) 03/16/24 17:50 MCHC 35.2 g/dL (30-55) 03/16/24 17:50 RDW 13.3 % (12.1-15.1) 03/16/24 17:50 Plt Count 248 10^3/cmm (157-399) 03/16/24 17:50 MPV 9.1 fL (7.4-10.4) 03/16/24 17:50 Neut % (Auto) 70.3 % 03/16/24 17:50 Lymph % (Auto) 18.3 % 03/16/24 17:50 Gove % (Auto) 7.6 % 03/16/24 17:50 Eos % (Auto) 1.6 % 03/16/24 17:50 Baso % (Auto) 0.8 % 03/16/24 17:50 Neut # (Auto) 7.39 10^3/uL (1.8-7.7) 03/16/24 17:50 Lymph # (Auto) 1.9 10^3/uL (0.8-4.8) 03/16/24 17:50 Gove # (Auto) 0.8 10^3/uL (0.2-0.9) 03/16/24 17:50 Eos # (Auto) 0.2 10^3/uL (0.0-0.8) 03/16/24 17:50 Baso # (Auto) 0.1 10^3/uL (0.0-0.1) 03/16/24 17:50 Nucleated RBC % (auto) 0 % 03/16/24 17:50 Nucleated RBCs # 0.0 /100WBC 03/16/24 17:50 Sodium 127 mmol/L (136-145) L 03/16/24 20:25 Potassium 3.8 mmol/L (3.5-5.1) 03/16/24 20:25 Chloride 90 mmol/L (98-107) L 03/16/24 20:25 Carbon Dioxide 28 mmol/L (22-29) 03/16/24 20:25 Anion Gap 12.8 (5-19) 03/16/24 20:25 BUN 17 mg/dL (8-23) 03/16/24 20:25 Creatinine 1.1 mg/dL (0.7-1.2) 03/16/24 20:25 GFR Calculation Not Reportable 03/16/24 20:25 Glucose 99 mg/dL (65-115) 03/16/24 20:25 Calculated Osmolality 266 mOsm/kg (285-295) L 03/16/24 20:25 Calcium 9.0 mg/dL (8.5-10.5) 03/16/24 20:25 Total Bilirubin 0.9 mg/dL (0.15-1.2) 03/16/24 20:25 AST 24 U/L (0-40) 03/16/24 20:25 ALT 35 U/L (0-41) 03/16/24 20:25 Alkaline Phosphatase 54 U/L (40-130) 03/16/24 20:25 C-Reactive Protein 3.0 mg/L (0.0-4.9) 03/16/24 17:50 Total Protein 6.2 g/dL (6.6-8.7) L 03/16/24 20:25 Albumin 4.1 g/dL (3.5-5.2) 03/16/24 20:25 Globulin 2.1 g/dL (1.3-4.6) 03/16/24 20:25 Coronavirus (PCR) Negative (Negative) 03/16/24 18:01 Influenza A (PCR) Negative (Negative) 03/16/24 18:01 Influenza Type B (PCR) Negative (Negative) 03/16/24 18:01 RSV (PCR) Negative (Negative) 03/16/24 18:01 Group A Strep Rapid Negative (Negative) 03/16/24 18:01 Discharge Plan Discharge Patient Disposition: Home Clinical Impression: SOB (shortness of breath) Condition: Stable Prescriptions: New dexamethasone 6 mg tablet 6 mg PO DAILY 5 Days Qty: 5 0RF No Action aspirin [Adult Low Dose Aspirin] 81 mg tablet,delayed release (DR/EC) 81 mg PO DAILY omega-3 fatty acids [Fish Oil Concentrate] 1,000 mg capsule 1,000 mg PO DAILY meloxicam 7.5 mg tablet 15 mg PO DAILY cetirizine [Zyrtec] 10 mg tablet 10 mg PO DAILY PRN cholecalciferol (vitamin D3) 25 mcg (1,000 unit) capsule 25 mcg PO DAILY azelastine-fluticasone 137-50 mcg/spray spray,non-aerosol 1 spray intranasal BID Rx Instructions: administer into each nostril diclofenac sodium [Voltaren Arthritis Pain] 1 % gel 2 g topical BID Qty: 100 0RF (DME) Custom Molded Orthotics See Rx Instructions .Route .MEDSUPPLY Qty: 1 0RF Rx Instructions: As directed furosemide 20 mg tablet 20 mg PO DAILY bupropion HCl [Wellbutrin XL] 300 mg tablet extended release 24 hr 300 mg PO QAM Qty: 90 1RF clonazepam [Klonopin] 0.5 mg tablet 0.5 mg PO .at bed Qty: 90 1RF risperidone [Risperdal] 0.5 mg tablet 0.5 mg PO .at bed Qty: 90 1RF trazodone 50 mg tablet 50 mg PO .at bed PRN (Reason: sleep) Qty: 180 1RF Rx Instructions: 1-2 tabs at bedtime as needed for sleep (DME) sole support See Rx Instructions .Route .MEDSUPPLY Qty: 1 0RF Rx Instructions: As directed lisinopril 40 mg tablet 40 mg PO DAILY gabapentin 300 mg capsule 300 mg PO TID Qty: 90 3RF Discharge Orders: Discharge ED (Routine); Ordered 03/16/24 Ordered By: Madison Browning Referrals: Dann Tipton, [Primary Care Provider] - Discharge Diet: Usual diet Discharge Activity: Increase activity as tolerated Patient Instructions: Shortness of Breath (ED), Opioid Safety, Pain Management Activity Restrictions/Additional Instructions: Thank you for choosing [facility] for your healthcare needs today. Please realize this is an emergency room and that we are providing you with a medical screening exam and this may not be complete and all inclusive of all the testing and or work up that you may need to determine your ailment or severity of your illness. You have been screened and evaluated and felt safe for discharge. Health conditions do change or evolve sometimes and as such it is important that you follow up with your Primary Doctor to be re checked, 3-5 days is a general good time frame for follow up. You are always welcome to return to the ED for re assessment if your symptoms are worsening or you have new concerns Coding Level of Care Code ED Residential Aide for Glenn Gong
--- NOTE | 2024-03-16 17:51 | XRR_ITS ---
PROCEDURE INFORMATION: Exam: XR Soft Tissue Neck Exam date and time: 03/16/2024 6:02 PM Age: 73 years old Clinical indication: Other: Swelling; Additional info: Throat swelling, TECHNIQUE: Imaging protocol: Radiologic exam of the soft tissues of the neck. COMPARISON: MR cervical spin wo con* [id number] 04/17/2023 1:52 PM FINDINGS: Airway: Normal. No abnormal narrowing. Soft tissues: Unremarkable. Normal epiglottis. Bones/joints: Spondylotic change cervical spine. XR/XR soft tissue neck [id number] IMPRESSION: No acute findings.
--- NOTE | 2024-03-16 17:51 | XRR_ITS ---
PROCEDURE INFORMATION: Exam: XR Chest Exam date and time: 03/16/2024 6:01 PM Age: 73 years old Clinical indication: Dyspnea and shortness of breath and other: Throat swelling TECHNIQUE: Imaging protocol: Radiologic exam of the chest. Views: 1 view. COMPARISON: CR XR chest 2V* [id number] 03/15/2024 11:45 AM FINDINGS: Lungs: No infiltrate or consolidation. Pleural spaces: No pleural effusion or pneumothorax. Heart/Mediastinum: No significant cardiomegaly. Bones/joints: Visualized osseous structures show no acute abnormality. Other findings: No significant change with prior exam other than mild decreased inspiration. XR/XR chest 1V portable [id number] IMPRESSION: No acute cardiopulmonary abnormality.
[2024-03-16] MEDS: methylPREDNISolone sod succ 125 mg/2 mL INJ IVP (17:54)
[2024-03-16] MEDS: ipratropium-albuterol 3 mL Neb INHALATION ×2 (17:57→23:10)
[2024-03-16 18:15] LABS: Rapid Strep A Test Negative (Negative)
[2024-03-16 18:21] LABS: Basophils # 0.1 10^3/uL (0.0-0.1); Basophils % 0.8 %; Eosinophils # 0.2 10^3/uL (0.0-0.8); Eosinophils % 1.6 %; Hematocrit 49.7 % (37-53); Lymphocytes # 1.9 10^3/uL (0.8-4.8); Lymphocytes % 18.3 %; Mean Corpuscular HGB Conc 35.2 g/dL (30-55); Mean Corpuscular Hemoglobin 29.4 pg (27-33); Mean Corpuscular Volume 83.5 fl (82-101); Mean Platelet Volume 9.1 fL (7.4-10.4); Monocytes # 0.8 10^3/uL (0.2-0.9); Monocytes % 7.6 %; Neutrophils # 7.39 10^3/uL (1.8-7.7); Neutrophils % 70.3 %; Nucleated Red Blood Cells % 0 %; Platelet Count 248 10^3/cmm (157-399); Red Blood Count 5.95 10^6/uL (3.85-5.65); Red Cell Distribution Width 13.3 % (12.1-15.1); White Blood Count 10.51 10^3/uL (3.29-11.43)
[2024-03-16 18:47] LABS: Covid PCR NEGATIVE (Negative); Influenza A NEGATIVE (Negative); Influenza B NEGATIVE (Negative); Respiratory Syncytial Virus Ce NEGATIVE (Negative)
--- NOTE | 2024-03-16 19:00 | CTR_ITS ---
PROCEDURE INFORMATION: Exam: CT Neck With Contrast Exam date and time: 03/16/2024 9:02 PM Age: 73 years old Clinical indication: Mass, lump, or swelling in neck; Right; Additional info: Right sided neck swelling, TECHNIQUE: Imaging protocol: Computed tomography of the neck with contrast. Radiation optimization: All CT scans at this facility use at least one of these dose optimization techniques: automated exposure control; mA and/or kV adjustment per patient size (includes targeted exams where dose is matched to clinical indication); or iterative reconstruction. Contrast material: OMNI 350; Contrast volume: 100 ml; Contrast route: INTRAVENOUS (IV); COMPARISON: CR (NECK, ) 03/16/2024 6:02 PM RADIATION DOSE METRICS: Total DLP (mGy-cm): 418.55 FINDINGS: No BB marker was placed over any area of interest. Salivary glands: Unremarkable. No significant or asymmetric enlargement or mass. Pharynx: Unremarkable. No significant tonsillar enlargement. Prevertebral and retropharyngeal spaces: Unremarkable. No significant or asymmetric soft tissue fullness or enlargement. Larynx: Unremarkable. Epiglottis is normal. Thyroid: Normal. No enlarged or calcified nodules. Trachea: Visualized trachea is unremarkable. Lungs: Lung apices show no significant abnormality. Lymph nodes: No lymph node enlargement or lymphadenopathy is seen. Bones/joints: Spondylotic change cervical spine. Soft tissues: Unremarkable. No significant soft tissue swelling or fluid collection. Minimal calcification around the right carotid bulb region. CT/CT neck w con* [id number] IMPRESSION: No acute findings.
[2024-03-16 20:53] LABS: Albumin Level 4.1 g/dL (3.5-5.2); Alkaline Phosphatase 54 U/L (40-130); Anion Gap 12.8 (5-19); Aspartate Amino Transferase 24 U/L (0-40); Blood Urea Nitrogen 17 mg/dL (8-23); Carbon Dioxide 28 mmol/L (22-29); Chloride 90 mmol/L (98-107); Creatinine Clr Calc Pharmacy 83.1646; Globulin 2.1 g/dL (1.3-4.6); Glucose 99 mg/dL (65-115); Osmolality Calculated 266 mOsm/kg (285-295); Potassium 3.8 mmol/L (3.5-5.1); Sodium 127 mmol/L (136-145); Total Bilirubin 0.9 mg/dL (0.15-1.2); Total Protein 6.2 g/dL (6.6-8.7)
[2024-03-16 21:11] LABS: Alanine Aminotransferase 35 U/L (0-41)
[2024-03-16] MEDS: iohexol 350 mg/mL 500 mL Btl (per mL) IV (21:12)
[2024-03-16] MEDS: LORazepam 2 mg/mL INJ 1 mL 1 MG IVP (22:27)
[2024-03-16] MEDS: oxymetazoline 0.05% Nasal Spray 15 mL 2 SPRAY NOSTRIL-B (22:34)
== END 2024-03-16 23:36 | disposition home or self-care (01) ==
PROVIDERS: Emergency Medicine; Emergency Provider Emergency Medicine; PCP Internal Medicine
DX: R06.02 Shortness of breath (principal); Z79.82 Long term (current) use of aspirin; Z79.1 Long term (current) use of non-steroidal anti-inflammatories (NSAID); Z11.52 Encounter for screening for COVID-19
CPT/HCPCS: 0241U; 70360; 70491; 71045; 80053; 85025; 86140; 87081; 87880; 94640; 96374; 96375; 99285; J2060; J2919

== ENCOUNTER 2024-04-25 07:30 | Outpatient (CLI) | payer MEDICARE, OTHER, SELFPAY ==
--- NOTE | 2024-04-25 07:47 | MR_ITS ---
WS: [id number] MRI NECK WITH CONTRAST TECHNIQUE: Noncontrast axial T1, axial T2 FSE fat sat, coronal T2 fat sat, coronal T1, coronal T1 fat sat, sagittal T2 fat sat, plus contrast enhanced coronal, sagittal, and axial T1 fat sat images obta ined. CLINICAL INFORMATION: MASS COMPARISON: None. FINDINGS: Parotid glands are normal. Submandibular glands are normal. Normal posterior fossa. Normal vascular f low voids at the skull base. Paranasal sinuses and mastoid air cells are well aerated. No evidence of supraglottic or glottic mass. Normal subglottic airway. No cervical lymphadenopathy. Moderate spondy litic changes cervical spine with small disc osteophyte protrusions. Mild central canal stenosis C5-C 6 and C6-C7. No abnormal gadolinium enhancement. MR/MR orbit face neck wo/w* [id number] IMPRESSION: 1. No cervical lymphadenopathy. 2. Salivary glands are normal. 3. No evidence of supraglottic or glottic mass. Normal subglottic airway. 4. Mild spondylitic changes cervical spine with mild central canal stenosis C5 -C7.
--- NOTE | 2024-04-25 07:54 | CT_ITS ---
WS: [id number] CT chest w con* [id number] HISTORY: SHORTNESS OF BREATH TECHNIQUE: Axial imaging performed through the thorax. Coronal and sagittal reformats are submitted. All CT scans at [facility] use at least one of these dose optimization techniques: automated exposure control; mA and/or kV adjustment per patient size (includes targeted exams where dose is mat ched to clinical indication); or iterative reconstruction. CONTRAST: Omnipaque 350; 100 mL IV. DLP: 602.95 mGy.cm COMPARISON: 12/10/2017 Lungs and central airway: Normal. Pleura: Normal. No pleural effusion. Heart and pericardium: Normal size heart with no pericardial effusion. Mediastinum and gabbie: No mediastinum or hilar adenopathy. Vessels: Mild atherosclerosis aorta. Normal great vessels. Normal size pulmonary artery. Chest wall and lower neck: No soft tissue masses. Upper abdomen: Small hiatal hernia. Mild fatty replacement of the pancreas. Osseous structures: Moderate increase in thoracic kyphosis. Large bridging clawlike osteophytes throu ghout the thoracic spine. Reidentified is a stable bony exostosis from what is probably the medial se venth LEFT rib. CT/CT chest w con* [id number] IMPRESSION: 1. No pneumonia. Well-aerated lungs. 2. Normal size heart. 3. Mild atherosclerosis thoracic aorta. 4. Small hiatal hernia. 5. No mediastinal or hilar adenopathy.
--- NOTE | 2024-04-25 07:54 | FL_ITS ---
WS: [id number] Exam: FL barium swallow [id number] Date/Time of Exam: 04/25/2024 10:12 AM Reason For Exam: DYSPHAGIA Fluoroscopy time: 1min [id number] minutes # of spot films: 6 Oropharyngeal phase of swallowing was normal. No penetration or aspiration observed. There is moderat e extrinsic compression along the posterior cervical esophagus at the C5-6 and C6-7 levels secondary to anterior osteophytes. There is also moderate spasm in the mid to lower esophagus. No intrinsic eso phageal masses were seen. No other sign of stricture. Small sliding hiatal hernia. No reflux was obse rved. FL/FL barium swallow [id number] IMPRESSION: 1. Moderate extrinsic posterior compression along the cervical esophagus at the C5-6 and C6-7 levels secondary to prominent anterior osteophytes. There is als o tertiary spasm in the mid and lower esophagus. 2. No intrinsic esophageal mass or stricture was noted otherwise. No reflux. Sm all hiatal hernia.
[2024-04-25] MEDS: gadobenate dimeglumine 20 mL vial IV (08:28)
[2024-04-25] MEDS: iohexol 350 mg/mL 500 mL Btl (per mL) IV (08:45)
== END 2024-04-25 07:31 | disposition home or self-care (01) ==
PROVIDERS: PCP Internal Medicine; Visit Provider Specialist
DX: R06.02 Shortness of breath (principal); K44.9 Diaphragmatic hernia without obstruction or gangrene; M40.204 Unspecified kyphosis, thoracic region; M25.78 Osteophyte, vertebrae; R93.3 Abnormal findings on diagnostic imaging of other parts of digestive tract
CPT/HCPCS: 70543; 71260; 74220; 94010

== ENCOUNTER 2024-05-31 18:12 | Emergency (ER) | payer MEDICARE, OTHER, SELFPAY ==
[2024-05-31 18:38] VITALS: BP 182/94; PULSE 83; RESP 17; TEMP 36.7; O2SAT 97; BMI 35.9
--- NOTE | 2024-05-31 19:56 | ED_ITS ---
HPI - Epistaxis 2 General: Chief complaint: Epistaxis Stated complaint: Nose Bleed Time Seen by Provider: 05/31/24 19:16 Source: patient Mode of arrival: ambulatory Limitations: no limitations History of Present Illness: Patient is a 73-year-old male with history of anxiety depression who presents the emergency department with intermittent epistaxis throughout the day. This has occurred in his right nostril, he is able to control it with direct pressure but states it will start up again. Also has noticed his blood pressure has been elevated throughout the day. Recently finished steroids for an upper respiratory infection, overall states he has been ill since February after having his blood pressure medication switched off of amlodipine. States he did start lisinopril but this caused a cough so he was subsequently switched to losartan. Notes that he has had extensive workup from primary care as well as ear nose throat, where he has actually had upper scope and MRI. Notes with today he had severe sharp right sided headache with visual loss, this is since subsided. He is mainly concerned of going to bed as he does not want to start bleeding again. He does not take any blood thinner, just takes a baby aspirin. In triage his blood pressure elevated to 182/94, retake at time of my examination 160s systolic. Rest of his vitals unremarkable. MD complaint: epistaxis Location: right nostril Onset (ago): hour(s) Duration: intermittent Context: hypertension Associated symptoms: Reports headache(s); Deny fever(s) or vomiting Treatment prior to arrival: stuffed nose with tissue Related Data Home Medications Medication Instructions Recorded Confirmed meloxicam 7.5 mg tablet 15 mg PO DAILY 06/21/19 02/22/24 aspirin 81 mg tablet,delayed 81 mg PO DAILY 07/13/19 02/22/24 release (Adult Low Dose Aspirin) omega-3 fatty acids 1,000 mg 1,000 mg PO DAILY 07/13/19 02/22/24 capsule (Fish Oil Concentrate) azelastine 137 mcg-fluticasone 50 1 spray intranasal BID 01/14/21 02/22/24 mcg/spray nasal spray cetirizine 10 mg tablet (Zyrtec) 10 mg PO DAILY PRN 01/14/21 02/22/24 cholecalciferol (vitamin D3) 25 25 mcg PO DAILY 01/14/21 02/22/24 mcg (1,000 unit) capsule lisinopril 40 mg tablet 40 mg PO DAILY 12/02/22 02/22/24 furosemide 20 mg tablet 20 mg PO DAILY 02/22/24 02/22/24 Previous Rx's Medication Instructions Recorded Custom Molded Orthotics #1 ea 09/23/21 diclofenac sodium 1 % topical gel 2 g topical BID #100 grams 09/23/21 (Voltaren Arthritis Pain) sole support #1 ea 12/11/21 gabapentin 300 mg capsule 300 mg PO TID pain #90 caps 11/05/23 bupropion HCl 300 mg 24 hr tablet, 300 mg PO QAM #90 tabs 02/22/24 extended release (Wellbutrin XL) clonazepam 0.5 mg tablet (Klonopin) 0.5 mg PO .at bed #90 tabs 02/22/24 trazodone 50 mg tablet 50 mg PO .at bed PRN sleep #180 02/22/24 tabs risperidone 0.5 mg tablet 0.5 mg PO .at bed #90 tabs 05/23/24 (Risperdal) oxymetazoline 0.05 % nasal spray 2 spray intranasal BID PRN nasal 05/31/24 (Afrin (oxymetazoline)) congestion 3 days #15 mL Allergies Allergy/AdvReac Type Severity Reaction Status Date / Time No Known Allergies Allergy Verified 05/31/24 18:42 Review of Systems 2 General: Reports: 10 or more systems reviewed and unremarkable except in HPI and below Const: Denies: fever(s), chills or fatigue Eyes: Reports: change in vision ENMT: Reports: epistaxis; Denies: throat pain, ear or mastoid pain or nasal discharge Card: Reports: other (Hypertension); Denies: chest pain, palpitations, swelling of feet/ankles or lightheadedness Resp: Denies: dyspnea, productive cough or wheezing GI: Denies: abdominal pain, nausea, vomiting, diarrhea or constipation : Denies: flank pain, difficulty urinating, dysuria or urinary frequency Musc: Denies: neck pain, back pain or joint pain Skin/Breast: Denies: rash Neuro: Reports: headache(s); Denies: numbness in extremities or weakness in extremities PFSH ED 2 PFSH: Medical History Scapular dyskinesis Pectoralis muscle strain Low-level of literacy Psychiatric care Prostatitis Lower urinary tract symptoms (LUTS) Insomnia Incomplete bladder emptying Insomnia Male erectile dysfunction Elevated PSA Generalized anxiety disorder Primary hypersomnia Major depressive disorder, recurrent, in partial remission Surgical History H/O transurethral resection of prostate Family History Father , 86 Cancer lung Mother , 84 No problems noted. Sister Diabetes Social History Smoking and tobacco/nicotine status: never used tobacco/nicotine Alcohol intake: never Substance/Drug Use: never Marital status: / Current occupational status: employed Physical Exam 2 Const: COMMON NORMALS: no acute distress, patient oriented x3 and no limitations GENERAL APPEARANCE: cooperative, well developed and anxious O RIENTATION/CONSCIOUSNESS: Yes awake, Yes oriented to person, Yes oriented to place and Yes oriented to time OTHER: Patient excessively clearing his throat and coughing during exam HENMT: COMMON NORMALS: normocephalic, atraumatic, hearing grossly normal bilaterally, moist oral mucous membranes and oropharynx normal HEAD & SCALP: normocephalic and atraumatic NOSE: Epistaxis present on the right anterior source and dried blood present OTHER: Oropharyngeal exam does not demonstrate any posterior bleeding, no active bleeding at this time Eye: COMMON NORMALS: Equal, round and reactive pupils present, EOMs intact bilaterally and conjunctivae normal CONJUNCTIVA: Yes conjunctivae normal P UPIL: Yes Equal, round and reactive pupils present Neck/C-Spine: COMMON NORMALS: full ROM, supple and no JVD Resp: COMMON NORMALS: normal respiratory effort, No retractions, No use of accessory muscles and clear to auscultation bilaterally AUSCULTATION: clear to auscultation bilaterally Cardio: COMMON NORMALS: no JVD, regular rate, regular rhythm, No clicks present (Cardio), No murmurs present (Cardio) and No rub (Cardio) RATE: r egular rate RHYTHM: regular rhythm Extremity: COMMON NORMALS: normal to inspection, full ROM and capillary refill normal Neuro: COMMON NORMALS: patient oriented x3, moves all extremities, no focal motor deficits and no sensory deficits noted SENSORIUM/ORIENTATION: Yes oriented to person, Yes oriented to place and Yes oriented to time Psych: COMMON NORMALS: mental status grossly normal and Normal thought process present THOUGHT PROCESS: Normal thought process present Skin: COMMON NORMALS: no rashes or lesions noted GENERAL SKIN EXAM: no rashes or lesions noted Course 2 Vital Signs: Vital signs: Vital Signs Temperature 98.1 F 05/31/24 18:38 Pulse Rate 85 05/31/24 20:38 Respiratory Rate 17 05/31/24 18:38 Blood Pressure 162/95 05/31/24 20:38 Pulse Oximetry 95 05/31/24 20:38 Oxygen Delivery Me thod Room Air 05/31/24 20:38 MDM - Epistaxis Medical Decision Making Patient presented with intermittent nosebleed, there was no bleeding at my time of examination. Also reported sharp onset right sided head pain earlier today, CT was negative for any acute findings here. Was given Afrin for his nosebleed, again this helped halt any bleeding, no posterior bleeding on physical exam and no need for nasal packing. All of his blood work was unremarkable, aside from chronically low sodium which was 127 back in February, this does appear to be chronic we will have him follow-up with primary care in regards to this. He has had numerous workups with card cutter helper, ENT, and primary care in regards to his overall feeling sick, informed him to follow-up with primary care as there is nothing apparently emergent at this time. He was very anxious throughout ED stay, gave him return precautions and he agrees with discharge plan at this time. Initial blood pressure was elevated 180 systolic, decreased to 160 systolic at time of discharge. Lab Data 05/31/24 20:11 05/31/24 20:[address] 05/31/24 19:56 IMPRESSION: No acute intracranial abnormality. Laboratory Results WBC 12.65 10^3/uL (3.29-11.43) H 05/31/24 20:11 RBC 5.78 10^6/uL (3.85-5.65) H 05/31/24 20:11 Hgb 16.70 g/dL (11.27-16.99) 05/31/24 20:11 Hct 49.0 % (37-53) 05/31/24 20:11 MCV 84.8 fl (82-101) 05/31/24 20:11 MCH 28.9 pg (27-33) 05/31/24 20:11 MCHC 34.1 g/dL (30-55) 05/31/24 20:11 RDW 14.5 % (12.1-15.1) 05/31/24 20:11 Plt Count 224 10^3/cmm (157-399) 05/31/24 20:11 MPV 8.5 fL (7.4-10.4) 05/31/24 20:11 Neut % (Auto) 65.9 % 05/31/24 20:11 Lymph % (Auto) 21.6 % 05/31/24 20:11 [place] % (Auto) 7.2 % 05/31/24 20:11 Eos % (Auto) 1.7 % 05/31/24 20:11 Baso % (Auto) 0.6 % 05/31/24 20:11 Neut # (Auto) 8.34 10^3/uL (1.8-7.7) H 05/31/24 20:11 Lymph # (Auto) 2.7 10^3/uL (0.8-4.8) 05/31/24 20:11 [place] # (Auto) 0.9 10^3/uL (0.2-0.9) 05/31/24 20:11 Eos # (Auto) 0.2 10^3/uL (0.0-0.8) 05/31/24 20:11 Baso # (Auto) 0.1 10^3/uL (0.0-0.1) 05/31/24 20:11 Nucleated RBC % (auto) 0 % 05/31/24 20:11 Nucleated RBCs # 0.0 /100WBC 05/31/24 20:11 PT 12.20 SECONDS (12.1-14.9) 05/31/24 20:11 INR 0.85 (0.8-1.2) 05/31/24 20:11 APTT 23.2 SECONDS (23.9-36.7) L 05/31/24 20:11 Sodium 127 mmol/L (136-145) L 05/31/24 20:11 Potassium 3.9 mmol/L (3.5-5.1) 05/31/24 20:11 Chloride 90 mmol/L (98-107) L 05/31/24 20:11 Carbon Dioxide 28 mmol/L (22-29) 05/31/24 20:11 Anion Gap 12.9 (5-19) 05/31/24 20:11 BUN 18 mg/dL (8-23) 05/31/24 20:11 Creatinine 1.1 mg/dL (0.7-1.2) 05/31/24 20:11 GFR Calculation Not Reportable 05/31/24 20:11 Glucose 89 mg/dL (65-115) 05/31/24 20:11 Calculated Osmolality 265 mOsm/kg (285-295) L 05/31/24 20:11 Calcium 9.8 mg/dL (8.5-10.5) 05/31/24 20:11 Total Bilirubin 0.5 mg/dL (0.15-1.2) 05/31/24 20:11 AST 19 U/L (0-40) 05/31/24 20:11 ALT 29 U/L (0-41) 05/31/24 20:11 Alkaline Phosphatase 57 U/L (40-130) 05/31/24 20:11 Total Protein 6.3 g/dL (6.6-8.7) L 05/31/24 20:11 Albumin 4.1 g/dL (3.5-5.2) 05/31/24 20:11 Globulin 2.2 g/dL (1.3-4.6) 05/31/24 20:11 All radiology interpretation(s) finalized by discharge Discharge Plan Discharge Patient Disposition: Home Clinical Impression: Acute anterior epistaxis Condition: Stable Prescriptions: New oxymetazoline [Afrin (oxymetazoline)] 0.05 % spray,non-aerosol 2 spray intranasal BID PRN (Reason: nasal congestion) 3 Days Qty: 15 0RF No Action aspirin [Adult Low Dose Aspirin] 81 mg tablet,delayed release (DR/EC) 81 mg PO DAILY omega-3 fatty acids [Fish Oil Concentrate] 1,000 mg capsule 1,000 mg PO DAILY meloxicam 7.5 mg tablet 15 mg PO DAILY cetirizine [Zyrtec] 10 mg tablet 10 mg PO DAILY PRN cholecalciferol (vitamin D3) 25 mcg (1,000 unit) capsule 25 mcg PO DAILY azelastine-fluticasone 137-50 mcg/spray spray,non-aerosol 1 spray intranasal BID Rx Instructions: administer into each nostril diclofenac sodium [Voltaren Arthritis Pain] 1 % gel 2 g topical BID Qty: 100 0RF (DME) Custom Molded Orthotics See Rx Instructions .Route .MEDSUPPLY Qty: 1 0RF Rx Instructions: As directed furosemide 20 mg tablet 20 mg PO DAILY bupropion HCl [Wellbutrin XL] 300 mg tablet extended release 24 hr 300 mg PO QAM Qty: 90 1RF clonazepam [Klonopin] 0.5 mg tablet 0.5 mg PO .at bed Qty: 90 1RF trazodone 50 mg tablet 50 mg PO .at bed PRN (Reason: sleep) Qty: 180 1RF Rx Instructions: 1-2 tabs at bedtime as needed for sleep (DME) sole support See Rx Instructions .Route .MEDSUPPLY Qty: 1 0RF Rx Instructions: As directed lisinopril 40 mg tablet 40 mg PO DAILY gabapentin 300 mg capsule 300 mg PO TID Qty: 90 3RF risperidone [Risperdal] 0.5 mg tablet 0.5 mg PO .at bed Qty: 90 1RF Discharge Orders: Discharge ED (Routine); Ordered 05/31/24 Ordered By: Eduar Rodrigues Referrals: Fracisco Edgar MD [Primary Care Provider] - Patient Instructions: Nosebleed (ED) Activity Restrictions/Additional Instructions: Afrin as prescribed. Follow-up with primary care for further evaluation. Continue taking blood pressure medications and other medications as prescribed. Return with any recurrence of bleeding or other concerning symptoms. Coding Level of Care Code ED Crystallography Teacher for Glenn Gong
--- NOTE | 2024-05-31 19:56 | CTR_ITS ---
PROCEDURE INFORMATION: Exam: CT Head Without Contrast Exam date and time: 05/31/2024 8:14 PM Age: 73 years old Clinical indication: Visual disturbance and other: Bloody nose; Additional info: Right lateral head pain with visual changes TECHNIQUE: Imaging protocol: Computed tomography of the head without contrast. Radiation optimization: All CT scans at this facility use at least one of these dose optimization techniques: automated exposure control; mA and/or kV adjustment per patient size (includes targeted exams where dose is matched to clinical indication); or iterative reconstruction. COMPARISON: CT head wo con* [id number] 06/22/2018 3:34 PM RADIATION DOSE METRICS: Total DLP (mGy-cm): 1176.98 FINDINGS: Brain: No hemorrhage. Diffuse periventricular white matter disease. No mass effect. No collections. Age related volume loss. Cerebral ventricles: No ventriculomegaly. Paranasal sinuses: No significant air-fluid levels noted in the visualized sinuses. Left sphenoid sinus mucoid retention cyst. Mastoid air cells: Mastoid air cells are aerated with no effusions. Bones: No acute osseous abnormality. Soft tissues: Unremarkable. CT/CT head wo con* [id number] IMPRESSION: No acute intracranial abnormality.
[2024-05-31] MEDS: oxymetazoline 0.05% Nasal Spray 15 mL 2 SPRAY NOSTRIL-R (20:26)
[2024-05-31 20:38] VITALS: BP 162/95; PULSE 85; O2SAT 95
[2024-05-31 20:39] LABS: Basophils # 0.1 10^3/uL (0.0-0.1); Basophils % 0.6 %; Eosinophils # 0.2 10^3/uL (0.0-0.8); Eosinophils % 1.7 %; Lymphocytes # 2.7 10^3/uL (0.8-4.8); Lymphocytes % 21.6 %; Mean Corpuscular HGB Conc 34.1 g/dL (30-55); Mean Corpuscular Hemoglobin 28.9 pg (27-33); Mean Corpuscular Volume 84.8 fl (82-101); Mean Platelet Volume 8.5 fL (7.4-10.4); Monocytes # 0.9 10^3/uL (0.2-0.9); Monocytes % 7.2 %; Neutrophils # 8.34 10^3/uL (1.8-7.7); Neutrophils % 65.9 %; Nucleated Red Blood Cells % 0 %; Platelet Count 224 10^3/cmm (157-399); Red Blood Count 5.78 10^6/uL (3.85-5.65); Red Cell Distribution Width 14.5 % (12.1-15.1); White Blood Count 12.65 10^3/uL (3.29-11.43)
[2024-05-31 20:47] LABS: INR 0.85 (0.8-1.2)
[2024-05-31 20:48] LABS: Partial Thromboplastin Time 23.2 SECONDS (23.9-36.7)
[2024-05-31 20:57] LABS: Alanine Aminotransferase 29 U/L (0-41); Albumin Level 4.1 g/dL (3.5-5.2); Alkaline Phosphatase 57 U/L (40-130); Anion Gap 12.9 (5-19); Aspartate Amino Transferase 19 U/L (0-40); Blood Urea Nitrogen 18 mg/dL (8-23); Calcium 9.8 mg/dL (8.5-10.5); Carbon Dioxide 28 mmol/L (22-29); Chloride 90 mmol/L (98-107); Creatinine Clr Calc Pharmacy 84.6995; Globulin 2.2 g/dL (1.3-4.6); Glucose 89 mg/dL (65-115); Osmolality Calculated 265 mOsm/kg (285-295); Potassium 3.9 mmol/L (3.5-5.1); Sodium 127 mmol/L (136-145); Total Bilirubin 0.5 mg/dL (0.15-1.2); Total Protein 6.3 g/dL (6.6-8.7)
[2024-05-31 22:15] VITALS: BP 165/93; PULSE 73; O2SAT 97
== END 2024-05-31 22:21 | disposition home or self-care (01) ==
PROVIDERS: Emergency Provider Physician Assistant; PCP Family Medicine
DX: R04.0 Epistaxis (principal); Z79.82 Long term (current) use of aspirin
CPT/HCPCS: 36415; 70450; 80053; 85025; 85610; 85730; 99284

== ENCOUNTER 2025-05-17 09:47 | Outpatient (CLI) | payer MEDICARE, OTHER, SELFPAY ==
--- NOTE | 2025-05-17 10:01 | CT_ITS ---
WS: [id number] CT SINUSES TECHNIQUE: Noncontrast CT of the paranasal sinuses with coronal and sagittal reformatted images. CLINICAL INFORMATION: CHRONIC SINUSITIS COMPARISON: None. DLP: 382.[address] scans at [facility] use at least one of these dose optimization techniques: automated exposure control; mA and/or kV adjustment per patient size (includes targeted exams where dose is matched to clinical indication); or iterative reconstruction. FINDINGS: Paranasal sinuses are well aerated. LEFT sphenoid sinus retention cyst measuring 10 mm. LEFT to RIGHT nasal septal deviation measuring 5mm. Frontal sinuses and ethmoid air cells are well aerated. Mild mucosal thickening in the ethmoid air cells. LEFT kenneth bullosa. Ostiomeatal units are patent. Trace mucosal thickening in the RIGHT maxillary sinus. Normal pterygopalatine fossa. Sphenoid sinus ostia are patent. Mastoid air cells are well aerated. Normal posterior nasopharynx. Normal parapharyngeal fat. CT/CT sinus wo con* [id number] IMPRESSION: 1. Paranasal sinuses are well aerated. 2. 10 millimeter retention cyst in the LEFT sphenoid sinus. 3. Mastoid air cells are well aerated. 4. Ostiomeatal units are patent. 5. No other acute findings.
== END 2025-05-17 09:48 | disposition home or self-care (01) ==
PROVIDERS: PCP Family Medicine; Visit Provider Family Medicine
DX: J32.9 Chronic sinusitis, unspecified (principal); J34.1 Cyst and mucocele of nose and nasal sinus
CPT/HCPCS: 70486